=== PATIENT | female | born 1970 | race Caucasian/White ===

== ENCOUNTER 2024-09-12 18:52 | Emergency (ER) | payer MEDICARE, MEDICAID | END 2024-09-12 21:47 | disposition home or self-care (01) | LOC: CSHERS 18:52 | DX: S32.2XXA Fracture of coccyx, initial encounter for closed fracture (principal); S40.812A Abrasion of left upper arm, initial encounter; E11.9 Type 2 diabetes mellitus without complications; I10 Essential (primary) hypertension; Z55.6 Problems related to health literacy; W19.XXXA Unspecified fall, initial encounter; Y92.009 Unspecified place in unspecified non-institutional (private) residence as the place of occurrence of the external cause | CPT/HCPCS: 72220; 99284 ==

== ENCOUNTER 2024-10-23 07:34 | Emergency (ER) | payer MEDICARE, MEDICAID ==
[2024-10-23] MEDS ORDERED: Acetaminophen 500 MG TAB ONE (08:34)
== END 2024-10-23 10:15 | disposition home or self-care (01) ==
LOC: CSHERS 07:34
DX: S00.83XA Contusion of other part of head, initial encounter (principal); S40.021A Contusion of right upper arm, initial encounter; E11.9 Type 2 diabetes mellitus without complications; I10 Essential (primary) hypertension; W19.XXXA Unspecified fall, initial encounter
CPT/HCPCS: 70450; 70486